=== PATIENT | female | born 1985 | race Caucasian/White ===

== ENCOUNTER → 2019-04-07 16:20 | Outpatient (CLI) | payer OTHER, SELFPAY ==
[2019-04-07 15:11] VITALS: BMI 39.4
[2019-04-12 11:56] LABS: HPV APTIMA, High Risk Negative (Negative)
== END ==
PROVIDERS: PCP Student in an Organized Health Care Education/Training Program; Referring Provider Nurse Practitioner Women's Health; Visit Provider Nurse Practitioner Women's Health
DX: Z12.4 Encounter for screening for malignant neoplasm of cervix (principal)
CPT/HCPCS: 87624; 88175; G0145

== ENCOUNTER → 2019-04-10 08:48 | Outpatient (CLI) | payer OTHER, SELFPAY ==
[2019-04-07 15:11] VITALS: BMI 39.4
[2019-04-10 10:53] LABS: Hemoglobin A1c 5.6 % (4.2-6.3)
[2019-04-10 11:22] LABS: Cholesterol 179 mg/dL (200); Glucose 83 mg/dL (74-106); High Density Lipoprotein 50 mg/dL; Thyroid Stim Hormone (TSH) 0.82 uIU/mL (0.358-3.74); Triglycerides 63 mg/dL; Very Low Density Lipoprotein 13 mg/dL (5-40)
== END ==
PROVIDERS: PCP Student in an Organized Health Care Education/Training Program; Referring Provider Nurse Practitioner Women's Health; Visit Provider Nurse Practitioner Women's Health
DX: R63.5 Abnormal weight gain (principal); E66.9 Obesity, unspecified
CPT/HCPCS: 36415; 80061; 82947; 83036; 84443